=== PATIENT | female | born 1945 | race Caucasian/White ===

== ENCOUNTER 2022-06-21 14:03 | Outpatient (RCR) | payer MEDICARE, SELFPAY ==
--- NOTE | 2022-06-21 17:10 | PTOPEVAL1 ---
Assessment and note entered by Yas Ivy, PT Evaluation Information Assessment Status Evaluation Diagnosis Dizziness and giddiness Onset 06/07/22 Subjective Information Turned over in bed and the room spins The mornings have been the worst. Currently not too bad. Still feels like a headache coming on . Reported Pain Level Pain Score 0: Self Report Assessment PT Clinical Summary Pt presents with c/o symptoms consistent with BPPV . Pt reports symptoms improve through the day and today during an afternoon evaluation pt did not show nystagmus or c/o dizziness with testing. She did show decreased balance with eyes closed activities significantly which is suggestive of inner ear deficit. Pt was educated on BPPV, and has opted to attempt modifying her sleeping position as a test for symptoms as well as to wait and see for a couple weeks to see if symptoms will improve independent of therapy. She has scheduled a follow up for two weeks to report symptom changes or improvement. Plan of Care Interventions Neuro Re-education PT Services Indicated Yes Treatment Frequency and as needed with reevaluation 6 weeks Duration These treatments will address the objective and functional deficits as defined above. The patient will be advanced safely and appropriately in order for the patient to progress towards his/her prior level of function. Additional exercises will be introduced and as well as a comprehensive home exercise program upon discharge, if needed, ?to ensure carryover of functional gains achieved in the clinic. This treatment plan has been reviewed and agreement upon by the patient.
--- NOTE | 2022-07-05 12:30 | PTOPDC ---
Assessment and note entered by Yas Ivy, PT Assessment Status Discharge - Pt Not Present Diagnosis Dizziness and giddiness Onset 06/07/22 Subjective Information Turned over in bed and the room spins The mornings have been the worst. Currently not too bad. Still feels like a headache coming on . Assessment PT Clinical Summary Pt presented to evaluation on 06/21/22. At that time she reported she would only have symptoms in the evening. During evaluation, therapist was unable to illicit symptoms. Pt opted for a wait and see approach . Pt called today and stated she was not having any more issues and cancelled her one follow up appointment. Pt stated she wanted to close her chart, thus is being discharged from therapy at this time.
== END 2022-07-05 16:23 | disposition home or self-care (01) ==
LOC: ANHHIPT 14:03
PROVIDERS: PCP Physician Assistant Medical; Visit Provider Physician Assistant Medical
DX: R42 Dizziness and giddiness (principal)
CPT/HCPCS: 97110; 97162